=== PATIENT | female | born 1995 | race American Indian/Alaskan Native ===

== ENCOUNTER 2017-05-10 22:55 | Emergency (ER) | payer OTHER ==
[2017-05-10 23:31] LABS: Bacteria,Urine 1+ /HPF (Negative); Bilirubin,Urine NEG (Negative); Blood,Urine NEG (Negative); Color,Urine Yellow (Yellow); Mucus,Urine 3+ /HPF; Nitrite,Urine NEG (Negative)
[2017-05-10 23:36] LABS: Amphetamine Screen,Urine PRESUMPTIVE NEGATIVE; Benzodiazepines Screen,Urine PRESUMPTIVE NEGATIVE; Cocaine Screen,Urine PRESUMPTIVE NEGATIVE; Methadone Screen,Urine PRESUMPTIVE NEGATIVE; Opiate Screen,Urine PRESUMPTIVE NEGATIVE
[2017-05-10 23:43] LABS: Basophils % (Auto) 0.3 % (0.0-1.8); Eosinophils # (Auto) 0.1 K/mm3 (0.0-0.4); Eosinophils % (Auto) 0.7 % (0.0-4.3); Hematocrit 42.2 % (30.3-42.9); Hemoglobin 13.9 gm/dl (10.1-14.3); Lymphocytes # (Auto) 2.7 K/mm3 (1.2-5.4); Lymphocytes % (Auto) 32.4 % (13.4-35.0); Mean Corpuscular HGB Conc 33 % (30-34); Mean Corpuscular Hemoglobin 30 pg (28-32); Mean Corpuscular Volume 92 fl (79-97); Monocytes # (Auto) 0.5 K/mm3 (0.0-0.8); Monocytes % (Auto) 6.2 % (0.0-7.3); Platelet Count 215 K/mm3 (140-440); Red Blood Count 4.61 M/mm3 (3.65-5.03); Red Cell Distribution Width 13.3 % (13.2-15.2)
[2017-05-10 23:54] LABS: BUN/Creatinine Ratio 16; Blood Urea Nitrogen 8 mg/dL (7-17); Calcium 8.9 mg/dL (8.4-10.2); Hemolysis Index 8
[2017-05-10 23:58] LABS: Cannabinoid Screen,Urine PRESUMPTIVE POSITIVE
--- NOTE | 2017-05-11 00:42 | Emergency Department Report ---
ED Psych HPI - General Chief Complaint: Psych Stated Complaint: MENTAL HEALTH Time Seen by Provider: 05/11/17 00:20 Source: patient Mode of arrival: Ambulatory - History of Present Illness MD Complaint: suicidal ideation, feels depressed Onset/Timin -: week(s) Associated Psychiatric Symptoms: depression, suicidal ideation History of same: Yes (patient has never had any formal evaluation for the above) Quality: getting worse Worsens With: none Associated Symptoms: denies other symptoms. denies: confusion, headache, shortness of breath, nausea, vomiting, syncope, insomnia Treatments Prior to Arrival: none If Self Harm: has plan (patient took 4 Vicodin earlier today. She does not know what time. Patient is denying any other drug use. Patient was trying to kill herself is very disappointed that the Vicodin did not work) - Related Data Home Medications Medication Instructions Recorded Confirmed Last Taken No Known Home Medications [No 05/10/17 05/10/17 Unknown Reported Home Medications] Allergies Allergy/AdvReac Type Severity Reaction Status Date / Time No Known Allergies Allergy Unverified 05/10/17 23:09 ED Review of Systems ROS: Stated complaint: MENTAL HEALTH Other details as noted in HPI Constitutional: denies: chills, fever Eyes: denies: eye pain, eye discharge, vision change ENT: denies: ear pain, throat pain Respiratory: denies: cough, shortness of breath, wheezing Cardiovascular: denies: chest pain, palpitations Endocrine: no symptoms reported Gastrointestinal: denies: abdominal pain, nausea, diarrhea Genitourinary: denies: urgency, dysuria, discharge Musculoskeletal: denies: back pain, joint swelling, arthralgia Skin: denies: rash, lesions Neurological: denies: headache, weakness, paresthesias Psychiatric: denies: anxiety, depression Hematological/Lymphatic: denies: easy bleeding, easy bruising ED Past Medical Hx - Past Medical History Previous Medical History?: No - Surgical History Additional Surgical History: Tonsilectomy, Adenoidectomy - Social History Smoking Status: Never Smoker - Medications Home Medications: Home Medications Medication Instructions Recorded Confirmed Last Taken Type No Known Home Medications [No 05/10/17 05/10/17 Unknown History Reported Home Medications] ED Physical Exam - General Limitations: No Limitations General appearance: alert, in no apparent distress - Head Head exam: Present: atraumatic, normocephalic - Eye Eye exam: Present: normal appearance - ENT ENT exam: Present: mucous membranes moist - Neck Neck exam: Present: normal inspection - Respiratory Respiratory exam: Present: normal lung sounds bilaterally. Absent: respiratory distress - Cardiovascular Cardiovascular Exam: Present: regular rate, normal rhythm. Absent: systolic murmur, diastolic murmur, rubs, gallop - GI/Abdominal GI/Abdominal exam: Present: soft, normal bowel sounds - Extremities Exam Extremities exam: Present: normal inspection - Back Exam Back exam: Present: normal inspection - Neurological Exam Neurological exam: Present: alert, oriented X3 - Psychiatric Psychiatric exam: Present: normal affect, normal mood - Skin Skin exam: Present: warm, dry, intact, normal color. Absent: rash ED Course Vital Signs 05/10/17 05/10/17 05/10/17 22:56 23:05 23:58 Temperature 98.4 F 98.4 F 99.2 F Pulse Rate 81 80 74 Respiratory 18 16 14 Rate Blood Pressure 114/62 114/62 Blood Pressure 113/67 [Right] O2 Sat by Pulse 99 100 99 Oximetry ED Medical Decision Making - Lab Data Result diagrams: 05/10/17 23:24 05/10/17 23:24 - Medical Decision Making Patient is a 22-year-old [place] female who is presenting with suicidal ideations. Patient states she took 4 Vicodin earlier today as a suicide attempt. Patient did have salicylate and acetaminophen levels drawn. Both were within normal limits. Patient's use was greater than 4 hours. Additional lab values are not needed at this time. Patient's been medically cleared for psych placement. Patient has seen the mobile hot stick man and was placed under 1013 Critical care attestation.: If time is entered above; I have spent that time in minutes in the direct care of this critically ill patient, excluding procedure time. ED Disposition Clinical Impression: Suicidal ideation Disposition: [id number]/TX-[id number] ANOTHER TYPE HLTHCARE Is pt being admited?: No Does the pt Need Aspirin: No Condition: Stable Referrals: ZULEIMA FOX MD [Primary Care Provider] - 3-5 Days
--- NOTE | 2017-05-12 10:45 | Consultation ---
History of Present Illness - Reason for Consult Consult date: 05/12/17 Reason for consult: Mental Health Evaluation Requesting physician: JANAY ALVAREZ - Chief Complaint Chief complaint: "I am stressed" - History of Present Psychiatric Illness 22 y.o. AA female presenting to [facility] for SI's. Today the patient is calm and cooperative during the assessment. She stated that she has been stressing out about her job and still grieving the of her stepfather. She stated that her stepfather's is still hard to deal with. She stated that her job is "horrible" because her coworkers want her "fired." She stated that she want to be in college, but that has not happened. She stated being overwhelmed a couple days ago because of these stressors and decided to take 4 Vicodin pills to kill herself. She stated that she had no reason to live that day. She stated that her mother noticed a change in her behavior, so she was brought to [facility]. She stated that her mother isn't aware of her suicide attempt. She admitted to isolating herself from family and feel worthless at times. She rate her depression 6/10, with 10 being the worse. She could not confirm or deny being suicidal when asked. She stated that she smoke marijuana frequently to help her cope with the depression. She denies HI's and AVH's. She denies any manic episodes, sleep disturbance, and a poor appetite. She denies alcohol consumptions (etoh). Medications and Allergies Allergies Allergy/AdvReac Type Severity Reaction Status Date / Time No Known Allergies Allergy Unverified 05/10/17 23:09 Home Medications Medication Instructions Recorded Confirmed Last Taken Type No Known Home Medications [No 05/10/17 05/10/17 Unknown History Reported Home Medications] Past psychiatric history - Past Medical History Past Medical History: No medical history Past Surgical History: tonsillectomy - past Psychiatric treatment and history psychiatric treatment history: Denies a psy hx and a fam psy hx. - Social History Social history: lives with family ([employer] graduate) Mental Status Exam - Vital signs Last Vital Signs Temp 98 F 05/11/17 22:41 Pulse 77 05/12/17 01:00 Resp 18 05/11/17 22:41 BP 124/76 05/12/17 01:00 Pulse Ox 97 05/11/17 22:41 - Exam Narrative exam: MSE: Appearance: calm, cooperative Behavior: poor eye contact Speech: regular rate and tone Mood: "depressed" withdrawn Affect: congruent to mood Thought Process: circumstantial Thought Content: denies HI's and AVH's Motor Activity: ambulatory Cognition: A/O x 3 Insight: variable Judgment: variable Results Result Diagrams: 05/10/17 23:24 05/10/17 23:24 All other labs normal. Assessment and Plan Assessment and plan: Impression: MDD, Severe Type. Substance Use DO (marijuana). Today the patient is calm and cooperative during the assessment. The patient would not confirm or deny SI's. DDx: R/O Bipolar DO Recommendation/Plan: Continue 1013 with placement to [facility] today. Start Celexa 10 mg PO daily for depression. Discussed possible suicidality/ medication induced roney with patient reference Celexa. Discussed generalized coping skills with patient.
[2017-05-12] MEDS ORDERED: celeXA PO SCH (11:00)
[2017-05-12 14:18] VITALS: BP 126/77
== END 2017-05-12 14:17 | disposition other institution (70) ==
LOC: ED 22:55 → EEVIPCON 22:55 → ED 05-12 14:17
DX: F32.9 Major depressive disorder, single episode, unspecified (principal); R45.851 Suicidal ideations; Z90.89 Acquired absence of other organs
CPT/HCPCS: 36415; 80048; 80307; 81001; 84703; 85025; 99283; G0480; 80320